=== PATIENT | male | born 1930 | race Caucasian/White ===

== ENCOUNTER → 2017-02-08 | Outpatient (CLI) | payer MEDICARE, OTHER | END | disposition home or self-care (01) | LOC: GMAH 10:30 | PROVIDERS: ATTEND Family Medicine | DX: Z12.5 Encounter for screening for malignant neoplasm of prostate (principal); E78.2 Mixed hyperlipidemia | CPT/HCPCS: 84443; 84550; G0103 ==

== ENCOUNTER → 2019-02-03 | Outpatient (CLI) | payer MEDICARE, OTHER ==
--- NOTE | 2019-02-03 16:47 | US ---
EXAM DESCRIPTION: Venous,Lower Extremity RT (accession [id number]), Venous,Lower Extremity LT (accession [id number]): Ultrasound. CLINICAL HISTORY: LOCALIZED [facility] COMPARISON: None Available. TECHNIQUE: Two -dimensional and doppler sonographic evaluation of the deep venous system of the bilateral lower extremities. FINDINGS: Doppler evaluation shows normal color flow and normal phasicity and augmentation of the bilateral common femoral veins, femoral veins, popliteal veins, greater saphenous vein, and peroneal veins, and Posterior tibial veins. These veins showed normal occlusion with transducer pressure. Two-dimensional survey showed no echogenic clot within these veins. Complex partially cystic partially solid mass in the right popliteal fossa. Measures 4.7 x 4.8 x 3.1 cm. No significant vascularity. IMPRESSION: Duplex ultrasound evaluation of the bilateral lower extremity deep venous systems showing no evidence of thrombosis. Complex Louise's cyst and possible hemorrhage right popliteal fossa. Electronically signed by: Joaquín Collazo MD 02/03/2019 4:44 PM CDT
--- NOTE | 2019-02-03 16:47 | US ---
EXAM DESCRIPTION: Venous,Lower Extremity RT (accession [id number]), Venous,Lower Extremity LT (accession [id number]): Ultrasound. CLINICAL HISTORY: LOCALIZED [facility]DE[facility] COMPARISON: None Available. TECHNIQUE: Two -dimensional and doppler sonographic evaluation of the deep venous system of the bilateral lower extremities. FINDINGS: Doppler evaluation shows normal color flow and normal phasicity and augmentation of the bilateral common femoral veins, femoral veins, popliteal veins, greater saphenous vein, and peroneal veins, and Posterior tibial veins. These veins showed normal occlusion with transducer pressure. Two-dimensional survey showed no echogenic clot within these veins. Complex partially cystic partially solid mass in the right popliteal fossa. Measures 4.7 x 4.8 x 3.1 cm. No significant vascularity. IMPRESSION: Duplex ultrasound evaluation of the bilateral lower extremity deep venous systems showing no evidence of thrombosis. Complex Louise's cyst and possible hemorrhage right popliteal fossa. Electronically signed by: Joaquín Collazo MD 02/03/2019 4:44 PM CDT
== END ==
LOC: US 14:00
PROVIDERS: ATTEND Family Medicine
DX: R60.0 Localized edema (principal); M71.21 Synovial cyst of popliteal space [Baker], right knee

== ENCOUNTER → 2019-04-29 | Outpatient (CLI) | payer MEDICARE, OTHER | LOC: GMAH 10:27 | PROVIDERS: ATTEND Family Medicine | DX: I10 Essential (primary) hypertension (principal); Z12.5 Encounter for screening for malignant neoplasm of prostate | CPT/HCPCS: 84443; 84550; G0103 ==